=== PATIENT | male | born 1940 | race Caucasian/White ===

== ENCOUNTER 2018-05-25 21:12 | Observation (INO) | payer MEDICARE, OTHER ==
[2018-05-25] MEDS: NITROGLYCERIN 2% 1 GM OINT PKT TD (21:16)
[2018-05-25] MEDS ORDERED: NITROGLYCERIN (SL) 0.4 MG TAB SL (21:30)
[2018-05-25 21:39] LABS: ADD MAN DIFF? NO
[2018-05-25] MEDS: morphine 4 MG/ML VIAL IV (21:41)
[2018-05-25] MEDS: ONDANSETRON 4 MG INJ IV (21:41)
[2018-05-25 21:42] LABS: BASOPHILS % 0.7 % (0.0-2.0); EOSINOPHILS # 0.2 10^3/ul (0.0-0.5); EOSINOPHILS % 3.8 % (0.0-7.0); HEMATOCRIT 33.7 % (42.0-52.0); HEMOGLOBIN 11.5 g/dl (14.0-18.0); LYMPHOCYTES # 1.4 10^3/ul (0.8-2.9); LYMPHOCYTES % 22.8 % (15.0-51.0); MEAN CORPUSCULAR HEMOGLOBIN 33.3 pg (29.0-33.0); MEAN CORPUSCULAR HGB CONC 34.1 g/dl (32.0-37.0); MEAN CORPUSCULAR VOLUME 97.7 fl (82.0-101.0); MEAN PLATELET VOLUME 10.3 fl (7.4-10.4); MONOCYTE # 1.2 10^3/ul (0.3-0.9); MONOCYTES % 19.3 % (0.0-11.0); NEUTROPHIL # 3.2 10^3/ul (1.6-7.5); NEUTROPHILS % 52.4 % (39.0-77.0); PLATELET COUNT 193 10^3/UL (140-415); RED BLOOD COUNT 3.45 10^6/ul (4.70-6.10)
[2018-05-25 21:59] LABS: ANION GAP 8 (5-13); BLOOD UREA NITROGEN 23 mg/dl (7-20); CALCIUM 8.8 mg/dl (8.4-10.2); CARBON DIOXIDE 23 mmol/L (21-31); CHLORIDE 109 mmol/L (97-110); CREATININE 1.08 mg/dl (0.61-1.24); GLUCOSE 109 mg/dl (70-220); POTASSIUM 4.6 mmol/L (3.5-5.1); SODIUM 140 mmol/L (135-144)
[2018-05-25 22:10] LABS: TROPONIN-I < 0.012 ng/ml (0.000-0.120)
[2018-05-25] MEDS ORDERED: ONDANSETRON 4 MG INJ IV (23:30)
[2018-05-25] MEDS ORDERED: ACETAMINOPHEN 325 MG TAB PO (23:30)
[2018-05-26] MEDS ORDERED: ONDANSETRON 4 MG INJ IV (00:30)
[2018-05-26] MEDS ORDERED: NITROGLYCERIN (SL) 0.4 MG TAB SL (00:30)
[2018-05-26] MEDS ORDERED: BISACODYL (EC) 5 MG TAB PO (00:30)
[2018-05-26] MEDS ORDERED: NACL 0.9% 3 ML SYG IV (00:30)
[2018-05-26] MEDS ORDERED: morphine 2 MG INJ IV (00:30)
[2018-05-26] MEDS ORDERED: DOCUSATE SODIUM 100 MG CAP PO (00:30)
[2018-05-26] MEDS ORDERED: ACETAMINOPHEN 325 MG TAB PO (00:30)
[2018-05-26] MEDS: SOD CHLORIDE 0.9% 1,000 ML IV (01:30)
[2018-05-26] MEDS ORDERED: HEPARIN 5,000 UNIT/0.5 ML VIAL ×2 (01:31→05:21)
[2018-05-26] MEDS: HEPARIN 5,000 UNIT/1 ML VIAL SC ×2 (01:40→05:43)
[2018-05-26 03:44] LABS: CREATINE KINASE 62 IU/L (23-200)
[2018-05-26 03:56] LABS: CK INDEX 1.6; CK-MB 0.97 ng/ml (0.0-2.4); TROPONIN-I < 0.012 ng/ml (0.000-0.120)
[2018-05-26 06:06] LABS: ADD MAN DIFF? NO
[2018-05-26 06:14] LABS: BASOPHILS % 0.7 % (0.0-2.0); EOSINOPHILS # 0.3 10^3/ul (0.0-0.5); EOSINOPHILS % 4.8 % (0.0-7.0); HEMATOCRIT 35.7 % (42.0-52.0); HEMOGLOBIN 11.8 g/dl (14.0-18.0); LYMPHOCYTES # 1.6 10^3/ul (0.8-2.9); MEAN CORPUSCULAR HEMOGLOBIN 33.1 pg (29.0-33.0); MEAN CORPUSCULAR HGB CONC 33.1 g/dl (32.0-37.0); MEAN CORPUSCULAR VOLUME 100.3 fl (82.0-101.0); MEAN PLATELET VOLUME 10.6 fl (7.4-10.4); MONOCYTE # 1.1 10^3/ul (0.3-0.9); MONOCYTES % 19.9 % (0.0-11.0); NEUTROPHIL # 2.6 10^3/ul (1.6-7.5); NEUTROPHILS % 45.5 % (39.0-77.0); PLATELET COUNT 180 10^3/UL (140-415); RED BLOOD COUNT 3.56 10^6/ul (4.70-6.10); RED CELL DISTRIBUTION WIDTH 13.1 % (11.5-14.5)
[2018-05-26 06:14] LABS: WHITE BLOOD COUNT 5.7 10^3/ul (4.8-10.8)
[2018-05-26 07:09] LABS: HEMOGLOBIN A1C 5.2 % (0-5.9)
[2018-05-26 07:10] LABS: ALANINE AMINOTRANSFERASE 28 IU/L (13-69); ALBUMIN 3.5 g/dl (3.3-4.9); ALBUMIN/GLOBULIN RATIO 1.29; ALKALINE PHOSPHATASE 78 IU/L (42-121); ANION GAP 8 (5-13); ASPARTATE AMINO TRANSFERASE 22 IU/L (15-46); BILIRUBIN,INDIRECT 0.2 mg/dl (0-1.1); BILIRUBIN,TOTAL 0.2 mg/dl (0.2-1.3); BLOOD UREA NITROGEN 19 mg/dl (7-20); CALCIUM 8.6 mg/dl (8.4-10.2); CARBON DIOXIDE 26 mmol/L (21-31); CHLORIDE 106 mmol/L (97-110); CHOL/HDL RATIO 4.8 RATIO; CHOLESTEROL 195 mg/dl (100-200); CREATININE 1.16 mg/dl (0.61-1.24); GLUCOSE 91 mg/dl (70-220); HDL CHOLESTEROL 40 mg/dl (31-75); LDL CHOLESTEROL,CALCULATED 139 mg/dl; MAGNESIUM 1.9 mg/dl (1.7-2.5); POTASSIUM 4.4 mmol/L (3.5-5.1); SODIUM 140 mmol/L (135-144); TOTAL PROTEIN 6.2 g/dl (6.1-8.1); TRIGLYCERIDES 78 mg/dl (0-149)
[2018-05-26 07:30] LABS: IRON 57 ug/dl (35-150)
[2018-05-26 07:40] LABS: % IRON SATURATION 21 % SAT (22-52); TOTAL IRON BINDING CAPACITY 274 ug/dl (241-421)
[2018-05-26] MEDS: ASPIRIN 81 MG TAB PO (08:23)
[2018-05-26 09:08] LABS: CREATINE KINASE 55 IU/L (23-200)
[2018-05-26 09:26] LABS: CK INDEX 1.9; CK-MB 1.06 ng/ml (0.0-2.4); TROPONIN-I < 0.012 ng/ml (0.000-0.120)
[2018-05-26] MEDS ORDERED: GLUCOSE GEL 15 GRAM TUBE PO ×2 (11:30)
[2018-05-26] MEDS ORDERED: GLUCOSE GEL 15 GRAM TUBE BUCCAL (11:30)
[2018-05-26] MEDS ORDERED: DEXTROSE 50% 50 ML SYRINGE IV ×2 (11:30)
[2018-05-26] MEDS ORDERED: GLUCAGON 1 MG INJ IM (11:30)
[2018-05-26] MEDS: INSULIN ASPART [NOVOLOG] 3 ML PEN SC (12:44)
[2018-05-27] MEDS ORDERED: ACCU-CHEK XX (02:00)
[2018-05-27] MEDS ORDERED: CLOPIDOGREL 75 MG TAB PO (09:00)
== END 2018-05-26 14:30 | disposition left against medical advice (07) ==
LOC: TEL 23:26 → E/R 21:12
DX: R07.9 Chest pain, unspecified (principal); I10 Essential (primary) hypertension; E11.9 Type 2 diabetes mellitus without complications; I25.10 Atherosclerotic heart disease of native coronary artery without angina pectoris; Z95.5 Presence of coronary angioplasty implant and graft; Z86.73 Personal history of transient ischemic attack (TIA), and cerebral infarction without residual deficits; Z87.891 Personal history of nicotine dependence; I25.2 Old myocardial infarction; Z95.0 Presence of cardiac pacemaker; E66.9 Obesity, unspecified; Z68.34 Body mass index [BMI] 34.0-34.9, adult; Z82.49 Family history of ischemic heart disease and other diseases of the circulatory system
CPT/HCPCS: 36415; 71045; 80048; 80053; 80061; 82550; 82553; 82728; 82962; 83036; 83540; 83735; 84443; 84484; 85025; 93005; 93306; 96374; 96375; 99285-25